=== PATIENT | female | born 1950 | race Caucasian/White ===

== ENCOUNTER 2018-09-16 15:12 | Emergency (ER) | payer MEDICAID ==
[2018-09-16 15:12] VITALS: BMI 27.4
[2018-09-16 15:40] VITALS: RESP 18; TEMP 98.2
--- NOTE | 2018-09-16 16:01 | ED PDOC ---
Arrival/HPI - General Chief Complaint: Headache Time Seen by Provider: 09/16/18 15:24 Historian: Patient, Family (daughter) - History of Present Illness Narrative History of Present Illness (Text): 09/16/18 15:58 A 68 year old female, whose past medical history includes hypertension, diabetes (was taking Metformin 1000mg), arthritis, who is accompanied by daughter, presents to the emergency department complaining of headache for years. Per daughter, patient has been concerned of "cracking sensation to head." Daughter also mentions patient has been unable to take her medications for the pasty 2 years due to insurance issues. Patient notes also experiencing chest pain sometimes and dizziness, however denies any shortness of breath, or any other complaints at this time. Blood pressure measured here in the ER read 178/100. No PMD Past Medical History - Provider Review Nursing Documentation Reviewed: Yes - Infectious Disease Hx of Infectious Diseases: None - Cardiac Hx Cardiac Disorders: Yes Hx Hypertension: Yes - Pulmonary Hx Respiratory Disorders: No - Neurological Hx Neurological Disorder: Yes Hx Dizziness: Yes - HEENT Hx HEENT Disorder: Yes Hx Cataracts: Yes (TRISHA.) - Renal Hx Renal Disorder: No - Endocrine/Metabolic Hx Endocrine Disorders: Yes Hx Diabetes Mellitus Type 2: Yes - Hematological/Oncological Hx Blood Disorders: No - Integumentary Hx Dermatological Disorder: No - Musculoskeletal/Rheumatological Hx Musculoskeletal Disorders: Yes Hx Arthritis: Yes Hx Osteoarthritis: Yes - Gastrointestinal Hx Gastrointestinal Disorders: Yes Hx Gastroesophageal Reflux: Yes - Genitourinary/Gynecological Hx Genitourinary Disorders: No - Psychiatric Hx Psychophysiologic Disorder: No Hx Substance Use: No - Anesthesia Hx Anesthesia: Yes Hx Anesthesia Reactions: No Hx Malignant Hyperthermia: No Family/Social History - Physician Review Nursing Documentation Reviewed: Yes Family/Social History: No Known Family HX Smoking Status: Never Smoked Hx Alcohol Use: No Hx Substance Use: No Allergies/Home Meds Allergies/Adverse Reactions: Allergies No Known Allergies Allergy (Verified 09/16/18 15:50) Home Medications: Home Meds Medication Instructions Recorded Confirmed MetFORMIN [glucoPHAGE] 500 mg PO DAILY 08/04/15 04/03/17 Atorvastatin [Lipitor] 10 mg PO HS 09/21/15 04/03/17 Gemfibrozil 600 mg PO BID 09/21/15 04/03/17 Pantoprazole [Protonix EC Tab] 20 mg PO DAILY 09/21/15 04/03/17 Amlodipine Besylate/Benazepril 1 cap PO DAILY 04/03/17 04/03/17 [Amlodipine Besylate and Benazepril Hydrochlor] Aspirin [Ecotrin] 81 mg PO DAILY 04/03/17 04/03/17 Multivit with Calcium,Iron,Min 1 each PO DAILY 04/03/17 04/03/17 [Essential Daily] Naproxen Sodium [Aleve] 220 mg PO DAILY PRN 04/03/17 04/03/17 Review of Systems - Physician Review All systems were reviewed & negative as marked: Yes - Review of Systems Respiratory: absent: SOB Cardiovascular: Chest Pain (sometimes) Neurological: Headache ("cracking sensation to head"), Dizziness Physical Exam Vital Signs Reviewed: Yes Vital Signs Temp Pulse Resp BP Pulse Ox 09/16/18 15:39 98.2 F 87 18 164/94 H 95 Temperature: Afebrile Blood Pressure: Hypertensive Pulse: Regular Respiratory Rate: Normal Appearance: Positive for: Well-Appearing, Non-Toxic, Comfortable Pain Distress: None Mental Status: Positive for: Alert and Oriented X 3 Medical Decision Making ED Course and Treatment: 09/16/18 16:01 Impression: 68 year old female with headache and dizziness. Plan: -- Head CT -- Reassess and disposition Progress Notes: - RAD Interpretation Narrative RAD Interpretations (Text): 09/16/18 16:30 Procedure: Head CT Dictator: Yang West MD Impression: No acute intracranial disease. Procedure: Chest X-Ray Dictator: Yang West MD Impression: No active disease. Sports Marketing Coordinator: Radiologist - Scribe Statement The provider has reviewed the documentation as recorded by the Chayito Lowery Provider Scribe Attestation: All medical record entries made by the Olivieribgodwin were at my direction and personally dictated by me. I have reviewed the chart and agree that the record accurately reflects my personal performance of the history, physical exam, medical decision making, and the department course for this patient. I have also personally directed, reviewed, and agree with the discharge instructions and disposition. Disposition/Present on Arrival - Present on Arrival Any Indicators Present on Arrival: No History of DVT/PE: No History of Uncontrolled Diabetes: No Urinary Catheter: No History of Decub. Ulcer: No History Surgical Site Infection Following: None - Disposition Have Diagnosis and Disposition been Completed?: Yes Diagnosis: Hypertensive urgency Disposition: HOME/ ROUTINE Disposition Time: 18:37 Patient Plan: Discharge Condition: STABLE Discharge Instructions (ExitCare): High Blood Pressure (DC) Print Language: LATVIAN Additional Instructions: All medical record entries made by the Scribe were at my direction and personally dictated by me. I have reviewed the chart and agree that the record accurately reflects my personal performance of the history, physical exam, medical decision making, and the department course for this patient. I have also personally directed, reviewed, and agree with the discharge instructions and disposition. Prescriptions: Lisinopril/Hydrochlorothiazide [Lisinopril-Hctz 20-25 mg Tab] 1 each PO DAILY #30 tablet Referrals: Sindhu Basurto MD [Medical Doctor] - Follow up with primary [facility] [place] [facility] [place] - Follow up with primary Forms: [employer] ([place])
[2018-09-16] MEDS ORDERED: Sodium Chloride 0.9% 1,000 ML IV STA (16:21)
[2018-09-16] MEDS ORDERED: Labetalol 5 mg/ml Inj 20ML IV STA (16:21)
--- NOTE | 2018-09-16 16:39 | RAD ---
Date of service: 09/16/2018 HISTORY: chest pain COMPARISON: 08/04/2015 FINDINGS: LUNGS: No active pulmonary disease. PLEURA: No significant pleural effusion identified, no pneumothorax apparent. CARDIOVASCULAR: No aortic atherosclerotic calcification present. Mild cardiomegaly no pulmonary vascular congestion. OSSEOUS STRUCTURES: No significant abnormalities. VISUALIZED UPPER ABDOMEN: Normal. OTHER FINDINGS: None. IMPRESSION: No active disease.
[2018-09-16 16:43] LABS: BASO # 0.04 K/mm3 (0.0-2.0); BASO % 0.4 % (0.0-3.0); EOS # 0.2 (0.0-0.7); EOS % 1.5 % (1.5-5.0); GRAN # 6.56 (1.4-6.5); GRAN % 63.5 % (50.0-68.0); HEMOGLOBIN 15.1 g/dL (12.0-16.0); LYMPH # 3.2 (1.2-3.4); LYMPH % 30.8 % (22.0-35.0); MEAN CELL VOLUME 92.3 fl (80.0-105.0); MEAN CORPUSCULAR HEMOGLOBIN 31.3 pg (25.0-35.0); MEAN CORPUSCULAR HGB CONC 33.9 g/dl (31.0-37.0); MEAN PLATELET VOLUME 12.1 fl (7.0-11.0); MONO # 0.4 (0.1-0.6); MONO % 3.8 % (1.0-6.0); RBC 4.83 10^6/uL (3.5-6.1); WHITE BLOOD COUNT 10.3 10^3/uL (4.5-11.0)
[2018-09-16 16:44] LABS: PH,URINE 6.5 (4.7-8.0); URINE BILIRUBIN NEGATIVE (NEGATIVE); URINE BLOOD NEGATIVE (NEGATIVE); URINE GLUCOSE (UA) NEGATIVE (NEGATIVE); URINE LEUKOCYTE ESTERASE NEGATIVE Leu/uL (NEGATIVE); URINE PROTEIN NEGATIVE mg/dL (<30 mg/dL); URINE UROBILINOGEN 0.2 E.U./dL (<1 E.U./dL)
[2018-09-16 16:46] LABS: INR 1.02; PROTHROMBIN TIME 11.6 SECONDS (9.4-12.5); URINE APPEARANCE CLEAR (CLEAR); URINE COLOR YELLOW (YELLOW)
--- NOTE | 2018-09-16 16:58 | CT ---
Date of service: 09/16/2018 PROCEDURE: CT HEAD WITHOUT CONTRAST. HISTORY: headache COMPARISON: 08/04/2015 TECHNIQUE: Axial computed tomography images were obtained through the head/brain without intravenous contrast. Radiation dose: Total exam DLP = 823.2 mGy-cm. This CT exam was performed using one or more of the following dose reduction techniques: Automated exposure control, adjustment of the mA and/or kV according to patient size, and/or use of iterative reconstruction technique. FINDINGS: HEMORRHAGE: No intracranial hemorrhage. BRAIN: No mass effect or edema. No atrophy or chronic microvascular ischemic changes. VENTRICLES: Unremarkable. No hydrocephalus. CALVARIUM: Unremarkable. PARANASAL SINUSES: There is fluid in the right maxillary sinus. There opacification of the right side of the sphenoid sinus. MASTOID AIR CELLS: Unremarkable as visualized. No inflammatory changes. OTHER FINDINGS: None. IMPRESSION: No acute intracranial findings
[2018-09-16 17:19] LABS: ALB/GLOB RATIO 1.2 (1.1-1.8); ALT/SGPT 30 U/L (7-56); AST/SGOT 30 U/L (14-36); BLOOD UREA NITROGEN 15 mg/dL (7-21); CALCIUM 10.1 mg/dL (8.4-10.5); GFR NON-AFRICAN AMERICAN > 60
[2018-09-16 17:34] LABS: B-TYPE NATRIURETIC PEPTIDE 46.3 pg/mL (0-450); TROPONIN I < 0.01 ng/mL
[2018-09-16] MEDS ORDERED: DiphenhydrAMINE 50 mg/ml Inj IVP STA (17:40)
[2018-09-16 20:05] VITALS: BP 150/91; PULSE 69; O2SAT 99
== END 2018-09-16 17:00 | disposition home or self-care (01) ==
LOC: ED 15:12
DX: I16.0 Hypertensive urgency (principal); E11.9 Type 2 diabetes mellitus without complications; I10 Essential (primary) hypertension
CPT/HCPCS: 70450; 71045; 80053; 81003; 83735; 83880; 84484; 85025; 85610; 85730; 96361; 96374; 96375; 99285; J1200; J1885; J2765; J7030